=== PATIENT | female | born 1990 | race Caucasian/White ===

== ENCOUNTER 2016-05-02 11:56 | Emergency (ER) | payer BC, MEDICAID, OTHER ==
[2016-05-02 12:24] VITALS: BP 126/88
--- NOTE | 2016-05-02 12:50 | UC ---
Abdominal Pain Female HPI - HPI Summary HPI Summary: 2 DAYS OF NAUSEA, VOMITING AND DARK COLORED, WATERY DIARRHEA. EPISODES HAVE BEEN LESS FREQUENT TODAY. IS DOING WELL WITH ICE CHIPS. HAS FELT FATIGUED WITH CHILLS AND SWEATS. ABDOMINAL PAIN WITH VOMITING. NO BLOOD. NO FEVER. DENIES URINARY SYMPTOMS. - History of Current Complaint Chief Complaint: UCGI Stated Complaint: VOMITING/DIARRHEA LOWER BACK PAIN Time Seen by Provider: 05/02/16 12:26 Hx Obtained From: Patient Hx Last Menstrual Period: 04/27/16 Onset/Duration: Gradual Onset, Lasting Days, Still Present Timing: Constant Severity Initially: Severe Severity Currently: Moderate Pain Intensity: 8 Pain Scale Used: 0-10 Numeric Location: Diffuse Radiates: No Character: Cramping Aggravating Factor(s): Food Alleviating Factor(s): Nothing Associated Signs and Symptoms: Positive: Decreased Appetite, Nausea, Vomiting, Diarrhea. Negative: Diaphoresis, Fever, Cough, Chest Pain, Dizzy, Back Pain, Constipation, Blood in Stool, Urinary Symptoms, Vaginal Bleeding, Vaginal Discharge Allergies/Adverse Reactions: Allergies Allergy/AdvReac Type Severity Reaction Status Date / Time Seasonal Allergies Allergy Congestion Uncoded 05/02/16 12:20 PMH/Surg Hx/FS Hx/Imm Hx Endocrine History Of: Denies: Diabetes, Thyroid Disease Cardiovascular History Of: Denies: Cardiac Disorders, Hypertension Respiratory History Of: Denies: COPD, Asthma GI/ History Of: Reports: Kidney Stones Denies: Ulcer - Surgical History Surgical History: None - Family History Known Family History: Positive: Diabetes, Other - dad with DDD - Social History Alcohol Use: Occasionally Alcohol Amount: 1/DAY Substance Use Type: None Smoking Status (MU): Never Smoked Tobacco Household Exposure Type: Cigarettes Review of Systems Constitutional: Negative Respiratory: Negative Cardiovascular: Negative Gastrointestinal: Abdominal Pain, Vomiting, Diarrhea, Other - NAUSEA Genitourinary: Negative All Other Systems Reviewed And Are Negative: Yes Physical Exam Triage Information Reviewed: Yes Appearance: Well-Appearing, No Pain Distress, Well-Nourished Vital Signs: Initial Vital Signs Temp 98.3 F 05/02/16 12:11 Pulse 92 05/02/16 12:11 Resp 18 05/02/16 12:11 BP 126/88 05/02/16 12:11 Pulse Ox 98 05/02/16 12:11 Vital Signs Reviewed: Yes Eyes: Positive: Conjunctiva Clear ENT: Positive: Hearing grossly normal Neck: Positive: Supple Respiratory Exam: Normal Cardiovascular Exam: Normal Abdomen Description: Positive: Soft, Other: - DIFFUSELY TTP. Negative: CVA Tenderness (R), CVA Tenderness (L), Distended, Guarding Bowel Sounds: Positive: Present, Hyperactive Musculoskeletal: Positive: No Edema Neurological: Positive: Alert Psychological: Positive: Age Appropriate Behavior Skin: Negative: rashes Diagnostics - Laboratory Diagnostic Studies Completed/Ordered: URINE DIP SP.GR. 1.025, POS PROTEIN, BLOOD , KETONES. URINE HCG NEGATIVE - Radiology CT ABD/PELVIS W/O CONTRAST Xray Interpretation: No Acute Changes - STABLE BILATERAL NONOBSTRUCTING RENAL STONES Radiology Interpretation Completed By: Radiologist Abd Pain Female Course/Dx - Course Course Of Treatment: STABLE NONOBSTRUCTING KIDNEY STONES SEEN ON CT AB/PELVIS TODAY. TREAT GASTROENTERITIS. ADVISED TO FOLLOW-UP IF NOT IMPROVING EXPECTED OVER THE NEXT SEVERAL DAYS. - Differential Dx/Diagnosis Provider Diagnoses: ACUTE GASTROENTERITIS Discharge - Discharge Plan Condition: Stable Disposition: HOME Prescriptions: Ondansetron ODT TAB* [Zofran Odt TAB*] 4 mg PO Q6H PRN #20 tab.odt PRN Reason: Nausea/Vomiting Patient Education Materials: Gastroenteritis (ED) Referrals: No Primary Care Phys,NOPCP [Primary Care Provider] - Additional Instructions: ENSURE ADEQUATE HYDRATION. CLEAR LIQUIDS, BLAND DIET. AVOID CAFFEINE, DAIRY, GREASY, SPICY FOODS. ONCE YOU ARE TOLERATING CLEAR LIQUIDS YOU CAN ADVANCE TO SIMPLE, BLAND FOODS. CALL THE NUMBER BELOW FOR ASSISTANCE IN ESTABLISHING WITH A PCP An additional resource available to assist in finding the appropriate physician for your health care needs is the [facility] ([facility]). You may contact them by calling [phone].
--- NOTE | 2016-05-02 14:02 | RAD ---
CLINICAL HISTORY: Pain, hematuria COMPARISON: September 04, 2013 TECHNIQUE: Multiple contiguous axial CT scans were obtained of the abdomen and pelvis, without intravenous contrast enhancement. Coronal and sagittal multiplanar reformations are submitted for review. Oral contrast was not administered. FINDINGS: The study is limited by the lack of intravenous contrast. This limits evaluation of the solid organs and vasculature. LUNG BASES: The lung bases are clear. LIVER: The liver is normal in shape, size, contour, and attenuation. BILE DUCTS: There is no intrahepatic or extrahepatic biliary dilatation. GALLBLADDER: The gallbladder is normal, without pericholecystic inflammatory change. PANCREAS: The pancreas is normal, without mass or ductal dilatation. SPLEEN: Normal in size and appearance. UPPER GI TRACT: Evaluation of the gastrointestinal tract is limited by incomplete gastric distention. The upper GI tract is unremarkable. SMALL BOWEL AND MESENTERY: The small bowel is normal in contour, course, and caliber. There is no obstruction or dilatation. COLON: The colon is normal in contour, course, caliber. There is no pericolonic inflammatory change. ADRENALS: Normal bilaterally. KIDNEYS: Again noted are nonobstructing calyceal stones on the right, without calculus of the midpole of the left kidney. This is stable. There is no hydronephrosis. BLADDER: The bladder is incompletely distended but is grossly normal. PELVIC ORGANS: The uterus and adnexa are grossly normal for technique. A pessary versus contraceptive insert is noted. AORTA: The aorta is normal. IVC: Unremarkable LYMPH NODES: There is no lymphadenopathy by size criteria. ABDOMINAL WALL: There is no evidence for abdominal wall hernia. BONES AND SOFT TISSUES: Unremarkable OTHER: None IMPRESSION: AGAIN NOTED ARE BILATERAL NONOBSTRUCTING RENAL STONES.
== END 2016-05-02 14:25 | disposition home or self-care (01) ==
LOC: UCEAST 11:56
DX: K52.9 Noninfective gastroenteritis and colitis, unspecified (principal); N20.0 Calculus of kidney; Z87.442 Personal history of urinary calculi; R53.83 Other fatigue; Z32.02 Encounter for pregnancy test, result negative; Z77.22 Contact with and (suspected) exposure to environmental tobacco smoke (acute) (chronic)
CPT/HCPCS: 74176; 81003; 84702; 99202; G0463

== ENCOUNTER 2017-07-06 08:54 | Emergency (ER) | payer OTHER ==
[2017-07-06 09:02] VITALS: BP 132/81
--- NOTE | 2017-07-06 10:07 | ED ---
Abdominal Pain/Female - HPI Summary HPI Summary: 26 yo WF p/w severe RLQ , flank and LBP since this AM pain is 10/10, extremely painful cannot sit comfortably - History of Current Complaint Chief Complaint: UCAbdominalPain Stated Complaint: BACK AND AB PAIN Time Seen by Provider: 07/06/17 09:14 Hx Obtained From: Patient Hx Last Menstrual Period: Current Onset/Duration: Sudden Onset Timing: Constant Severity Currently: Severe Pain Intensity: 10 Pain Scale Used: 0-10 Numeric Location: Discrete At: RLQ, Flank, Other - righ LBP Radiates to: Back, Flank, RLQ Character: Sharp, Tearing Aggravating Factor(s): Nothing Alleviating Factor(s): Position Associated Signs and Symptoms: Positive: Negative Allergies/Adverse Reactions: Allergies Allergy/AdvReac Type Severity Reaction Status Date / Time Seasonal Allergies Allergy Congestion Uncoded 07/06/17 09:02 PMH/Surg Hx/FS Hx/Imm Hx Previously Healthy: Yes Endocrine/Hematology History: Denies: Hx Diabetes, Hx Thyroid Disease Cardiovascular History: Denies: Hx Hypertension Respiratory History: Denies: Hx Asthma, Hx Chronic Obstructive Pulmonary Disease (COPD) GI History: Denies: Hx Ulcer History: Reports: Hx Kidney Stones Infectious Disease History: No Infectious Disease History: Denies: Hx Clostridium Difficile, Hx Hepatitis, Hx Human Immunodeficiency Virus (HIV), Hx of Known/Suspected MRSA, Hx Shingles, Hx Tuberculosis, Hx Known/ Suspected VRE, Hx Known/Suspected VRSA, History Other Infectious Disease, Traveled Outside the [place] in Last 30 Days - Family History Known Family History: Positive: None, Diabetes, Other - dad with DDD - Social History Alcohol Use: Occasionally Alcohol Amount: 1/DAY Substance Use Type: Reports: Marijuana Smoking Status (MU): Never Smoked Tobacco Review of Systems Constitutional: Negative Eyes: Negative ENT: Negative Cardiovascular: Negative Respiratory: Negative Positive: Abdominal Pain Positive: see HPI, flank pain Musculoskeletal: Negative Skin: Negative Neurological: Negative All Other Systems Reviewed And Are Negative: Yes Physical Exam Triage Information Reviewed: Yes Vital Signs On Initial Exam: Initial Vitals Temp Pulse Resp BP Pulse Ox 35.8 C 74 18 132/81 100 07/06/17 08:58 07/06/17 08:58 07/06/17 08:58 07/06/17 08:58 07/06/17 08:58 Vital Signs Reviewed: Yes Appearance: Positive: Ill-Appearing Skin: Positive: Warm Head/Face: Positive: Normal Head/Face Inspection Eyes: Positive: Normal ENT: Positive: Normal ENT inspection Neck: Positive: Supple Respiratory/Lung Sounds: Positive: Clear to Auscultation Cardiovascular: Positive: Normal Abdomen Description: Positive: McBurney's Point Tenderness, Other: - mild rebound Musculoskeletal: Positive: Normal Neurological: Positive: Normal Psychiatric: Positive: Normal Diagnostics - Vital Signs Vital Signs Temp Pulse Resp BP Pulse Ox 07/06/17 08:58 35.8 C 74 18 132/81 100 - Laboratory Lab Statement: Any lab studies that have been ordered have been reviewed, and results considered in the medical decision making process. Abdominal Pain Fem Course/Dx - Course Course Of Treatment: acute RLQ pain with rafiation to flank and and right lwer back- renal colic vs acute appendicitis- Pain is intractable- so advised to go to ER NOW - Diagnoses Provider Diagnoses: Acute abdominal pain Discharge - Sign-Out/Discharge Documenting (check all that apply): Discharge/Admit/Transfer - Discharge Plan Condition: Stable Disposition: HOME Patient Education Materials: Acute Abdominal Pain (ED) Referrals: No Primary Care Phys,NOPCP [Primary Care Provider] - Additional Instructions: PLEASE GO TO ER KATHRYN TO RULE OUT APPENDICITIS VS STONE - Billing Disposition and Condition Condition: STABLE Disposition: HOME
== END 2017-07-06 09:15 | disposition home or self-care (01) ==
LOC: UCEAST 08:54
DX: R10.31 Right lower quadrant pain (principal)
CPT/HCPCS: 99212; G0463

== ENCOUNTER 2017-07-06 09:32 | Emergency (ER) | payer OTHER ==
[2017-07-06] MEDS ORDERED: NS 0.9% 1000 ML* 1,000 ML IV ONE (09:50)
[2017-07-06] MEDS ORDERED: Ondansetron ODT TAB* 4 MG PO ONE (09:52)
[2017-07-06] MEDS ORDERED: Ketorolac INJ* 60 MG/2 ML VIAL IV PUSH ONE (09:53)
[2017-07-06] MEDS ORDERED: Morphine VIAL* 4 MG/ML VIAL (1 ml vial) IV ONE ×2 (09:53→12:17)
[2017-07-06 10:37] LABS: ABS Basophils 0.1 10^3/ul (0-0.2); ABS Eosinophils 0.1 10^3/ul (0-0.6); ABS Lymphocytes 1.2 10^3/ul (1.0-4.8); ABS Monocytes 0.4 10^3/ul (0-0.8); ABS Neutrophils 8.9 10^3/ul (1.5-7.7); ABS Nucleated RBC 0 10^3/ul; Eosinophil % 0.9 % (0-6); Hematocrit 36 % (35-47); Hemoglobin 12.2 g/dl (12.0-16.0); Lymphocyte % 10.9 % (25-47); Mean Corpuscular HGB Conc 34 g/dl (31-36); Mean Corpuscular Hemoglobin 31 pg (27-31); Mean Corpuscular Volume 91 fL (80-97); Mean Platelet Volume 10.5 um3 (7.4-10.4); Nucleated Red Blood Cells % 0.1; Platelet Count 194 10^3/ul (150-450); Red Blood Count 3.91 10^6/ul (4.0-5.4); Red Cell Distribution Width 13 % (10.5-15); White Blood Count 10.6 10^3/ul (3.5-10.8)
[2017-07-06 10:52] LABS: EGFR Non-African American 81.3 (>60)
[2017-07-06 10:56] LABS: Urine Appearance Clear; Urine Blood 3+ (Negative); Urine Color Yellow; Urine Ketones Trace (Negative); Urine Protein Negative (Negative); Urine Specific Gravity 1.019 (1.010-1.030); Urine Urobilinogen Negative (Negative)
--- NOTE | 2017-07-06 11:43 | RAD ---
Indication: Flank pain. CT of the abdomen and pelvis was performed without oral or IV contrast administration. Coronal and sagittal reconstructed images were obtained. The lung bases demonstrate no pleural fluid, nodules or masses. Heart is of normal size without evidence of pericardial effusion. The right kidney is enlarged. There is right hydronephrosis noted. Right hydroureter is noted. There is a calculi at the right ureterovesicular junction measuring 4 mm. There is suggestion of perinephric fluid suggestive of calyceal rupture. The left kidney shows no hydronephrosis of the nonobstructing calculi is noted in the upper pole of the right kidney measuring 4 mm. Other smaller calcifications are noted in the lower pole of the left kidney. The liver is normal in size. No focal lesions or intrahepatic ductal dilatation is noted. The gallbladder demonstrates no calcified gallstones. The pancreas demonstrates no mass or pancreatic duct dilatation. The spleen is normal in size. No adrenal masses are noted. Aorta and inferior vena cava are unremarkable. No dilated loops of bowel are noted. CT of the pelvis demonstrates uterus to be unremarkable. No adnexal masses are noted. The colon is filled with stool. IMPRESSION: Right hydronephrosis and hydroureter with perinephric fluid consistent with calyceal rupture. There is a 4 mm calculus in the right ureterovesicular junction. Nonobstructing calculi are noted in a normal-appearing left kidney.
[2017-07-06 12:49] VITALS: BP 114/72
--- NOTE | 2017-07-06 14:54 | ED ---
Back Pain - HPI Summary HPI Summary: Patient is a 26-year-old male who presents to emergency department for acute right flank pain. Patient states she has a history of kidney stones but has never passed one. Associated symptoms of vomiting. Denies fever or urinary symptoms. Symptoms are moderate in severity. Pain is constant and sharp in nature. No modifying factors. - History of Current Complaint Chief Complaint: EDFlankPain Stated Complaint: ABD PAIN-CC TRANSFER Time Seen by Provider: 07/06/17 09:49 Hx Obtained From: Patient Hx Last Menstrual Period: Current Pain Intensity: 5 Pain Scale Used: 0-10 Numeric - Allergies/Home Medications Allergies/Adverse Reactions: Allergies Allergy/AdvReac Type Severity Reaction Status Date / Time Seasonal Allergies Allergy Congestion Uncoded 07/06/17 09:02 PMH/Surg Hx/FS Hx/Imm Hx Previously Healthy: Yes Endocrine/Hematology History: Denies: Hx Diabetes, Hx Thyroid Disease Cardiovascular History: Denies: Hx Hypertension Respiratory History: Denies: Hx Asthma, Hx Chronic Obstructive Pulmonary Disease (COPD) GI History: Denies: Hx Ulcer History: Reports: Hx Kidney Stones Infectious Disease History: No Infectious Disease History: Denies: Hx Clostridium Difficile, Hx Hepatitis, Hx Human Immunodeficiency Virus (HIV), Hx of Known/Suspected MRSA, Hx Shingles, Hx Tuberculosis, Hx Known/ Suspected VRE, Hx Known/Suspected VRSA, History Other Infectious Disease, Traveled Outside the [place] in Last 30 Days - Family History Known Family History: Positive: None, Diabetes, Other - dad with DDD - Social History Occupation: Employed Full-time Lives: With Family Alcohol Use: Occasionally Alcohol Amount: 1/DAY Substance Use Type: Reports: Marijuana Smoking Status (MU): Never Smoked Tobacco Review of Systems Constitutional: Negative Negative: Fever, Chills Eyes: Negative ENT: Negative Cardiovascular: Negative Respiratory: Negative Positive: Abdominal Pain, Vomiting, Nausea. Negative: Diarrhea Positive: flank pain. Negative: burning, dysuria Skin: Negative Neurological: Negative All Other Systems Reviewed And Are Negative: Yes Physical Exam Triage Information Reviewed: Yes Vital Signs On Initial Exam: Initial Vitals Temp Pulse Resp BP Pulse Ox 98.3 F 88 16 128/78 100 07/06/17 09:40 07/06/17 09:40 07/06/17 09:40 07/06/17 09:40 07/06/17 09:40 Vital Signs Reviewed: Yes Appearance: Positive: Pain Distress - Pt. standing in room hunched over bed, appears in pain but nontoxic. S.O. present. Head/Face: Positive: Normal Head/Face Inspection Eyes: Positive: Normal, ALESSANDRO Abdomen Description: Positive: Soft, Other: - Right CVA tenderness. Neurological: Positive: Normal, CN Intact II-III Psychiatric: Positive: Normal Diagnostics - Vital Signs Vital Signs Temp Pulse Resp BP Pulse Ox 07/06/17 12:48 73 16 114/72 98 07/06/17 12:40 84 98 07/06/17 12:29 17 07/06/17 12:15 122/83 07/06/17 12:00 72 100 07/06/17 11:45 85 125/82 100 07/06/17 11:15 71 130/86 100 07/06/17 11:14 74 100 07/06/17 10:45 131/90 07/06/17 10:15 126/78 07/06/17 10:12 16 07/06/17 09:40 98.3 F 88 16 128/78 100 - Laboratory Lab Results: Lab Results 07/06/17 07/06/17 07/06/17 Range/Units 10:05 10:05 10:05 WBC 10.6 (3.5-10.8) 10^3/ul RBC 3.91 L (4.0-5.4) 10^6/ul Hgb 12.2 (12.0-16.0) g/dl Hct 36 (35-47) % MCV 91 (80-97) fL MCH 31 (27-31) pg MCHC 34 (31-36) g/dl RDW 13 (10.5-15) % Plt Count 194 (150-450) 10^3/ul MPV 10.5 H (7.4-10.4) um3 Neut % (Auto) 83.9 H (38-83) % Lymph % (Auto) 10.9 L (25-47) % Dare % (Auto) 3.8 (0-7) % Eos % (Auto) 0.9 (0-6) % Baso % (Auto) 0.5 (0-2) % Absolute Neuts (auto) 8.9 H (1.5-7.7) 10^3/ul Absolute Lymphs (auto) 1.2 (1.0-4.8) 10^3/ul Absolute Monos (auto) 0.4 (0-0.8) 10^3/ul Absolute Eos (auto) 0.1 (0-0.6) 10^3/ul Absolute Basos (auto) 0.1 (0-0.2) 10^3/ul Absolute Nucleated RBC 0 10^3/ul Nucleated RBC % 0.1 Sodium 140 (139-145) mmol/L Potassium 3.5 (3.5-5.0) mmol/L Chloride 111 (101-111) mmol/L Carbon Dioxide 19 L (22-32) mmol/L Anion Gap 10 (2-11) mmol/L BUN 13 (6-24) mg/dL Creatinine 0.84 (0.51-0.95) mg/dL Est GFR ( Amer) 104.6 (>60) Est GFR (Non-Af Amer) 81.3 (>60) BUN/Creatinine Ratio 15.5 (8-20) Glucose 142 H (70-100) mg/dL Calcium 9.2 (8.6-10.3) mg/dL Total Bilirubin 0.40 (0.2-1.0) mg/dL AST 22 (13-39) U/L ALT 17 (7-52) U/L Alkaline Phosphatase 46 (34-104) U/L Total Protein 7.1 (6.4-8.9) g/dL Albumin 4.2 (3.2-5.2) g/dL Globulin 2.9 (2-4) g/dL Albumin/Globulin Ratio 1.4 (1-3) Beta HCG, Quant < 0.60 mIU/mL Urine Color Yellow Urine Appearance Clear Urine pH 5.0 (5-9) Ur Specific [place] 1.019 (1.010-1.030) Urine Protein Negative (Negative) Urine Ketones Trace A (Negative) Urine Blood 3+ A (Negative) Urine Nitrate Negative (Negative) Urine Bilirubin Negative (Negative) Urine Urobilinogen Negative (Negative) Ur Leukocyte Esterase Negative (Negative) Urine WBC (Auto) Trace(0-5/hpf) (Absent) Urine RBC (Auto) 3+(>10/hpf) A (Absent) Urine Bacteria Absent (Absent) Urine Glucose Negative (Negative) Result Diagrams: 07/06/17 10:05 07/06/17 10:05 Lab Statement: Any lab studies that have been ordered have been reviewed, and results considered in the medical decision making process. Back Pain Course/Dx - Course Course Of Treatment: Patient presenting to the emergency department for acute onset of right flank pain that radiates to right groin. She is afebrile with stable vital signs. Suspect kidney stone. Patient was started on IV fluids and given a dose of IV Toradol and morphine. Labs and CT scan ordered. Blood work is unremarkable. Urinalysis shows RBCs without bacteria, leukocytes, nitrates. CT scan, reading per radiology: IMPRESSION: Right hydronephrosis and hydroureter with perinephric fluid consistent with. calyceal rupture. There is a 4 mm calculus in the right ureterovesicular junction. Nonobstructing calculi are noted in a normal-appearing left kidney. Case discussed with Dr. Joya. On re-exam pt. is resting comfortably results were discussed. Her pain is moderately controlled. Pt. is comfortable going home at this time. Rx for lortab, zofran, flomax sent to pharmacy. Pt. given INFO for urology f.u. To return to ER for uncontrollable vomiting or pain or for fever. Pt. understands and agrees with plan. Discharged home stable with family. - Diagnoses Differential Diagnosis/HQI/PQRI: Positive: Strain, Sprain, Other - Hydronephrosis, pyelonephritis, urolithiasis Provider Diagnoses: Hydronephrosis, Urolithiasis Discharge - Sign-Out/Discharge Documenting (check all that apply): Discharge/Admit/Transfer - Discharge Plan Condition: Good Disposition: HOME Prescriptions: Hydrocodone/Acetaminophen [Hydrocodone-Acetamin 5-325 mg] 1 each PO Q6H #12 tablet MDD 4 tablets Ondansetron TAB* [Zofran 4 MG Tab*] 4 mg PO Q6H PRN #12 tab PRN Reason: Nausea Tamsulosin CAP* [Flomax CAP*] 0.4 mg PO DAILY #5 cap Patient Education Materials: Kidney Stones (ED), Hydronephrosis (ED) Referrals: No Primary Care Phys,NOPCP [Primary Care Provider] - Rick Beasley MD [Medical Doctor] - Additional Instructions: Call Dr. Beasley's office today to schedule a follow up appointment Take medication as directed Increase fluids Return to ER for uncontrollable pain, vomiting, or for fever - Billing Disposition and Condition Condition: GOOD Disposition: HOME
== END 2017-07-06 12:48 | disposition home or self-care (01) ==
LOC: ED 09:32
DX: N13.30 Unspecified hydronephrosis (principal); N20.0 Calculus of kidney; N20.9 Urinary calculus, unspecified; Z87.442 Personal history of urinary calculi; R11.10 Vomiting, unspecified
CPT/HCPCS: 36415; 74176; 80053; 81003; 81015; 84702; 85025; 87086; 96374; 96375; 96376; 99283; A9270-GY; J1885; J2270

== ENCOUNTER 2018-03-27 20:13 | Emergency (ER) | payer OTHER ==
[2018-03-27 20:33] VITALS: BP 134/76
--- NOTE | 2018-03-27 21:36 | UC ---
Hand/Wrist HPI - HPI Summary HPI Summary: Patient was carrying a heavy box yesterday when it slipped and injured her left middle finger. Patient has swelling and bruising and tenderness to the whole finger. - History Of Current Complaint Chief Complaint: UCUpperExtremity Stated Complaint: FINGER INJURY Time Seen by Provider: 03/27/18 20:35 Hx Obtained From: Patient Hx Last Menstrual Period: 03/13/18 Onset/Duration: Sudden Onset, Lasting Days, Still Present Severity Initially: Moderate Severity Currently: Moderate Pain Intensity: 0 Pain Scale Used: 0-10 Numeric Character Of Pain: Sharp Aggravating Factor(s): Movement Alleviating Factor(s): Rest Associated Signs And Symptoms: Positive: Swelling, Bruising. Negative: Numbness /Tingling Related History: Dominant Hand Right - Allergies/Home Medications Allergies/Adverse Reactions: Allergies Allergy/AdvReac Type Severity Reaction Status Date / Time Seasonal Allergies Allergy Congestion Uncoded 03/27/18 20:33 PMH/Surg Hx/FS Hx/Imm Hx Previously Healthy: Yes - Surgical History Surgical History: None - Family History Known Family History: Positive: None, Diabetes, Other - dad with DDD - Social History Alcohol Use: Occasionally Alcohol Amount: 1/DAY Substance Use Type: Marijuana Smoking Status (MU): Never Smoked Tobacco Household Exposure Type: Cigarettes - Immunization History Most Recent Tetanus Shot: UTD Review of Systems All Other Systems Reviewed And Are Negative: Yes Constitutional: Positive: Negative Skin: Positive: Bruising Respiratory: Positive: Negative Cardiovascular: Positive: Negative Gastrointestinal: Positive: Negative Musculoskeletal: Positive: Arthralgia, Decreased ROM, Edema Physical Exam Triage Information Reviewed: Yes Appearance: Well-Appearing, No Pain Distress, Well-Nourished Vital Signs: Initial Vital Signs Temp 99.7 F 03/27/18 20:23 Pulse 79 03/27/18 20:23 Resp 15 03/27/18 20:23 BP 134/76 03/27/18 20:23 Pulse Ox 99 03/27/18 20:23 Vital Signs Reviewed: Yes Eyes: Positive: Conjunctiva Clear ENT: Positive: Hearing grossly normal Neck: Positive: Supple Respiratory: Positive: No respiratory distress, No accessory muscle use Cardiovascular: Positive: Pulses Normal Abdomen Description: Positive: Soft Musculoskeletal: Positive: ROM Limited @ - LEFT 3RD FINGER, Edema @ - LEFT 3RD FINGER, Other: - TTP LEFT 3RD FINGER. Neurological: Positive: Alert Psychological: Positive: Age Appropriate Behavior Skin: Positive: Other - BRUISING LEFT 3RD FINGER Diagnostics - Radiology LEFT 3RD FINGER Radiology Interpretation Completed By: ED Physician Summary of Radiographic Findings: NO FRACTURE Hand/Wrist Course/Dx - Differential Dx/Diagnosis Provider Diagnosis: Sprain of left middle finger Discharge - Sign-Out/Discharge Documenting (check all that apply): Patient Departure All imaging exams completed and their final reports reviewed: No - Discharge Plan Condition: Stable Disposition: HOME Patient Education Materials: Finger Sprain (ED) Referrals: Rolly Mir MD [Medical Doctor] - If Needed Additional Instructions: X-RAY OF YOUR FINGER TODAY UNREMARKABLE ON MY INITIAL INTERPRETATION. WE WILL CALL YOU TOMORROW IF THE RADIOLOGY READ DIFFERS. WEAR THE SPLINT NEEDED FOR COMFORT. YOUR SYMPTOMS SHOULD IMPROVE WITH REST OVER THE NEXT 1-2 WEEKS. FOLLOW-UP WITH ORTHOPEDICS IF YOU'RE NOT IMPROVING EXPECTED OR IF XRAY IS POSITIVE. TAKE OTC IBUPROFEN NEEDED FOR DISCOMFORT. APPLY ICE FOR 15 MINUTES SEVERAL TIMES DAILY FOR THE FIRST COUPLE OF DAYS. KEEP HAND ELEVATED WHEN AT REST. - Billing Disposition and Condition Condition: STABLE Disposition: Home
--- NOTE | 2018-03-28 07:34 | UC ---
- Progress Note Progress Note: Please notify pt of tiny volar plate fx follow up with orthopedist - EKG/XRAY/CT Xray Comments: Missed tiny volar plate fx Course/Dx - Diagnoses Provider Diagnoses: Sprain of left middle finger Discharge - Sign-Out/Discharge Documenting (check all that apply): Post-Discharge Follow Up All imaging exams completed and their final reports reviewed: Yes - Discharge Plan Condition: Stable Disposition: HOME Patient Education Materials: Finger Sprain (ED) Referrals: Rolly Mir MD [Medical Doctor] - If Needed Additional Instructions: X-RAY OF YOUR FINGER TODAY UNREMARKABLE ON MY INITIAL INTERPRETATION. WE WILL CALL YOU TOMORROW IF THE RADIOLOGY READ DIFFERS. WEAR THE SPLINT NEEDED FOR COMFORT. YOUR SYMPTOMS SHOULD IMPROVE WITH REST OVER THE NEXT 1-2 WEEKS. FOLLOW-UP WITH ORTHOPEDICS IF YOU'RE NOT IMPROVING EXPECTED OR IF XRAY IS POSITIVE. TAKE OTC IBUPROFEN NEEDED FOR DISCOMFORT. APPLY ICE FOR 15 MINUTES SEVERAL TIMES DAILY FOR THE FIRST COUPLE OF DAYS. KEEP HAND ELEVATED WHEN AT REST. - Billing Disposition and Condition Condition: STABLE Disposition: Home
== END 2018-03-27 21:15 | disposition home or self-care (01) ==
LOC: UCEAST 20:13
DX: S63.613A Unspecified sprain of left middle finger, initial encounter (principal); X58.XXXA Exposure to other specified factors, initial encounter; Y92.9 Unspecified place or not applicable; Y99.0 Civilian activity done for income or pay
CPT/HCPCS: 73140; 99211; G0463